=== PATIENT | female | born 1950 | race Two or more races ===

== ENCOUNTER 2024-12-16 18:27 | Emergency (ER) | payer OTHER, SELFPAY ==
[2024-12-16 18:28] VITALS: BP 188/94
[2024-12-16 19:21] VITALS: BP 195/94
[2024-12-16 19:22] VITALS: BMI 28.1
--- NOTE | 2024-12-16 19:34 | ED.GENMED ---
History of Present Illness
General
Chief Complaint: Fall
Source: patient and family ([id number] at bedside)
Exam Limitations: none
Time Seen by Provider: 12/16/24 19:11
Nursing documentation reviewed up to this point in time: agreed with
History of Present Illness
History of Present Illness:
Patient is a healthy 74-year-old female who presents to the emergency department with her [id number] for evaluation following fall earlier today. Patient's [id number] is assisting with translation per her request. Patient apparently
missed the last step while coming down the staircase and fell on her left side earlier today. This occurred around 2:30 PM. Patient's daughter in law witnessed the fall and states that she did not hit her head. Patient initially got up and was
ambulating without difficulty however after afternoon nap woke up with increasing pain. She describes pain along her left lower back and left buttock. She has been able to bear weight although is having some discomfort.
She denies any headache or neck pain. No chest pain, shortness of breath. She denies any numbness/tingling or weakness in lower extremities. No pain in her upper extremities.
Patient is not on any blood thinners
Review of Systems
Review of Systems
Allergies reviewed?: Yes
All Other Systems: ROS reviewed and negative except as documented in HPI and ROS
Phy Exam
Physical Exam
Physical Exam:
GENERAL: No acute distress
HEENT: atraumatic, extraocular muscles intact, no signs of entrapment, dentition intact, no other obvious trauma
NECK: no midline tenderness, normal range of motion, no other obvious trauma
BACK: no midline tenderness, mild reproducible tenderness on left posterior ribs
CHEST: no tenderness, no flail segment, no subcutaneous emphysema, no other obvious trauma
LUNGS: clear to auscultation bilaterally
CARDIOVASCULAR: regular rate and rhythm
ABDOMEN: soft, non-tender, no masses, no other obvious trauma
PELVIS: stable, no obvious injury
EXTREMITIES: Mild tenderness of left buttock. Full range of motion in bilateral upper and lower extremities without pain including internal/extra rotation of hips, distal pulses intact, no other obvious trauma
NEUROLOGIC: awake, alert x 3, no focal deficits
Course
Orders/Labs/Results
Orders:
Orders
12/16/24 19:34
Acetaminophen [Tylenol] 650 mg PO NOW STA
Hip, Left 2-3 Views [CR Hip - LT w/wo Pel 2-3 Vw*] Urgent
Comment:
Reason For Exam: fall, hip pain
Include a pelvis x-ray?: Yes
Lumbar Spine, 2 or 3 View [CR Lumbar Spine 2 Or 3 Views] Urgent
Comment:
Reason For Exam: fall
Ribs, Left 3 View W/PA Chest CR [CR Ribs-left 3 Vw W/pa Chest] Urgent
Comment:
Reason For Exam: fall, left rib pain
Vital Signs
Initial and Last Documented VS:
Initial Vital Signs
Temp Pulse Resp BP Pulse Ox
98.7 F 66 18 188/94 98
12/16/24 18:28 12/16/24 18:28 12/16/24 18:28 12/16/24 18:28 12/16/24 18:28
Last Documented Vital Signs
Temp Pulse Resp BP Pulse Ox
98.7 F 66 18 195/94 98
12/16/24 18:28 12/16/24 18:28 12/16/24 18:28 12/16/24 19:21 12/16/24 19:36
MDM/Problems Addressed
Differential Diagnosis Includes:
Not limited to: Rib fracture, rib contusion, hip fracture, hip dislocation, pelvic fracture, buttock contusion, EXTR
MDM/Problems Addressed:
74-year-old female presenting after mechanical fall down one step earlier today landing on left side. She has been ambulatory, however describes pain in her left flank, buttock/hip. There was no head strike. She�s not on any or anticoagulation.
Vitals and exam as above.
She overall appears well and in no distress. There is reproducible tenderness along left posterior ribs/flank and buttock without any obvious evidence of trauma. She has clear lung sounds bilaterally. She has full range of motion in bilateral upper
and lower extremities without pain. No midline spinal tenderness or neurological symptoms concerning for cauda equina.
Will check x-ray images of left ribs, lumbar spine, and left hip/pelvis. Will give Tylenol and reassess.
Update: x-ray without evidence of acute fracture. Some likely degenerative changes noted in lumbar spine and patient has no tenderness in this area � do not suspect fracture. Suspect likely contusion.
She is able to ambulate without assistance and is smiling in room. She states Tylenol helped pain significantly.
Do not feel further imaging warranted at this time. Will discharge home with supportive care instructions, strict return precautions and primary care, follow up. Patient and patient�s [id number] comfortable with plan.
Chronic conditions affecting care:
N/A
Acute Exacerbation and/or Progression of Chronic Illness:
N/A
*Radiology
Radiology exam reviewed: radiology read reviewed
*Pulse Oximetry
SaO2: 98
Oxygen Mode of Delivery: Room air
Patient hypoxic: no
*EKG
Interpreted by ED Provider?: NA
*Shuttle Bus Driver Interpretation
Rate: Shuttle Bus Driver- N/A
*Critical Care Note
Total Time (30-74mins, 75-104mins- exclusive of procedures): Not Applicable
ED Attending Note
-
Portions of this chart may have been created with voice recognition software.� Occasional wrong word or��sound alike� substitutions may have occurred due to the inherent limitations of voice recognition software.
Discharge Plan
Departure
Patient Disposition: Home (Routine Discharge)
Date of Disposition: 12/16/24
Time of Disposition: 22:06
Patient with high blood pressure during this ER visit?: Yes
Discharge Problem:
Fall, Contusion of rib on left side, Contusion of left buttock
Instructions: Contusion (DC), Preventing falls in adults, BLOOD PRESSURE
Prescriptions:
New
lidocaine 5 % adhesive patch,medicated
1 patch topical DAILY Qty: 15 0RF
Rx Instructions:
to area of pain
Activity Restrictions/Additional Instructions:
RETURN TO THE EMERGENCY DEPARTMENT WITH ANY SEVERE BACK PAIN, WORSENING HIP PAIN, SHORTNESS OF BREATH OR COUGH, NUMBNESS/TINGLING IN LOWER EXTREMITIES, LOSS OF BOWEL/BLADDER CONTROL, INABILITY TO AMBULATE, OR ANY OTHER CONCERNS
- As discussed, your x-ray showed no evidence of acute fracture. Please review x-ray imaging with primary care for incidental findings noted.
- You likely sustained contusions to your left buttock and left posterior ribs. You can take Tylenol as needed for pain. Apply heat pack and lidocaine patches as needed.
- Follow-up with primary care in a few days for further evaluation/management to ensure that your symptoms are improving
Monitor your symptoms closely and return to the emergency department with any acute worsening/new symptoms or any other concerns
Interventions
Interventions:
*Risk Screen - Suicide Last Done: 12/16/24 18:31
*General Assessment Last Done: 12/16/24 18:31
*Neglect/Abuse Screening Last Done: 12/16/24 18:31
*ED- Fall Risk Assessment Last Done: 12/16/24 19:23
*ED COVID-19 Vaccine History Last Done: 12/16/24 19:23
*ED Influenza Vaccine History Last Done: 12/16/24 19:23
*Nursing Disposition Last Done: 12/16/24 22:13
ED-Musculoskeletal Assessment Last Done: 12/16/24 19:24
ED- Neurological Assessment Last Done: 12/16/24 19:24
ED-Skin Assessment Last Done: 12/16/24 19:24
Discharge Date and Time
Discharge Date/Time: 12/16/24 22:23
Print Language: Ed
[2024-12-16] MEDS: TYLENOL 650 MG PO (19:41)
== END 2024-12-16 22:23 | disposition home or self-care (01) ==
LOC: EMR 18:27
PROVIDERS: EMERGENCY PHYSICIAN Emergency Medicine
DX: S20.212A Contusion of left front wall of thorax, initial encounter (principal); S30.0XXA Contusion of lower back and pelvis, initial encounter; W10.9XXA Fall (on) (from) unspecified stairs and steps, initial encounter
CPT/HCPCS: 99284; 71101; 72100; 73502